=== PATIENT | female | born 1980 | race American Indian/Alaskan Native ===

== ENCOUNTER 2019-08-19 09:59 | Outpatient (CLI) | payer BC ==
--- NOTE | 2019-08-19 15:33 | Mammography Report ---
DIGITAL SCREENING MAMMOGRAM WITH CAD, 08/19/2019 INDICATION: Routine screening mammography. TECHNIQUE: Digital bilateral 2D mammography was obtained in the craniocaudal and mediolateral obliq ue projections. This examination was interpreted with the benefit of Computer-Aided Detection analysi s. COMPARISON: None available. However, she indicated that she had a prior mammogram in [place]. FINDINGS: Breast Density: The breasts are heterogeneously dense, which may obscure small masses. Left asymmetries on both views require comparison with a prior mammogram or additional imaging. No ar chitectural distortion or suspicious calcifications of the left breast. There is no evidence of domin ant mass, suspicious calcifications or architectural distortion in the right breast. IMPRESSION: Comparison with a previous mammogram is recommended. We will attempt to obtain a prior ma mmogram for comparison. If we do not obtain a prior mammogram within 30 days, a revised report will b e issued recommending a recall for additional imaging. Please be advised that the patient should not schedule an appointment for return until adequate time (at least 2 weeks) has passed for us to obtain the prior mammogram. Follow up recommendation: Obtain prior study for comparison Category 0: Incomplete. Needs additional imaging evaluation and/or prior mammograms for comparison. A "normal" or negative report should not discourage follow up or biopsy of a clinically significant f inding. A written summary of these findings will be mailed to the patient. The patient will be entered into a mammography reporting system which will generate a reminder letter for the patient's next appointmen t at the appropriate interval. The [employer] recommends yearly mammograms starting at age 40 and continuing as l belinda as a woman is in good health. Breast MRI is recommended for women with an approximate 20-25% or greater lifetime risk of breast cancer, including women with a strong family history of breast or ova bear cancer or who have been treated for Hodgkin's disease. Signer Name: Tony Lanier MD Signed: 08/19/2019 3:29 PM Workstation Name: [id number]
== END 2019-08-19 10:00 | disposition home or self-care (01) ==
LOC: MAMMO 09:59
PROVIDERS: ATTEND Obstetrics & Gynecology
DX: Z12.31 Encounter for screening mammogram for malignant neoplasm of breast (principal)
CPT/HCPCS: 77067

== ENCOUNTER 2019-10-28 08:17 | Outpatient (CLI) | payer BC ==
--- NOTE | 2019-10-28 09:33 | Ultrasound Report ---
LEFT DIGITAL DIAGNOSTIC MAMMOGRAM WITH CAD -- 10/28/2019 LEFT LIMITED BREAST ULTRASOUND INDICATION: Patient presents as a callback from screening mammogram for further evaluation of a focal asymmetric density in the left breast. TECHNIQUE: Digital left mammographic imaging was performed. Magnification views were obtained. Limit ed ultrasound was performed. This examination was interpreted with the benefit of Computer-Aided Dete ction (CAD) analysis. COMPARISON: Prior mammogram 08/19/2019 FINDINGS: Breast Density: The breasts are heterogeneously dense, which may obscure small masses. MAMMOGRAPHIC FINDINGS: The previously described focal asymmetric density in the upper outer quadrant of the left breast, middle depth, is much less conspicuous on spot compression views, suggesting over lapping fibroglandular tissue. Targeted ultrasound performed for confirmation. ULTRASOUND FINDINGS: Targeted ultrasound evaluation was performed of the area of interest. Targeted ultrasound of the upper outer quadrant of the left breast reveals normal fibroglandular tissue. No s uspicious cystic or solid lesion. IMPRESSION: 1. The previously described left breast focal asymmetric density is much less conspicuous on addition al views and without sonographic correlate, compatible with overlapping fibroglandular tissue. Follow up recommendation: Routine yearly BI-RADS Category 1: Negative. A "normal" or negative report should not discourage follow up or biopsy of a clinically significant f inding. A written summary of these findings will be mailed to the patient. The patient will be entered into a mammography reporting system which will generate a reminder letter for the patient's next appointmen t at the appropriate interval. According to the [employer], yearly mammograms are recommended starting at age 40 and continuing as long as a woman is in good health. Breast MRI is recommended for women with an kofi roximately 20-25% or greater lifetime risk of breast cancer, including women with a strong family his tory of breast or ovarian cancer and women who have been treated for Hodgkin's disease. Signer Name: Mgagie Kelley MD Signed: 10/28/2019 9:29 AM Workstation Name: [facility]
== END 2019-10-28 08:18 | disposition home or self-care (01) ==
LOC: MAMMO 08:17
PROVIDERS: ATTEND Obstetrics & Gynecology
DX: R92.8 Other abnormal and inconclusive findings on diagnostic imaging of breast (principal)